=== PATIENT | female | born 1995 | race African-American/Black ===

== ENCOUNTER 2017-09-30 09:10 | Emergency (ER) | payer OTHER, SELFPAY ==
[2017-09-30] MEDS ORDERED: Sodium Chloride 0.9% 1,000 ML BAG ONE (09:21)
[2017-09-30] MEDS ORDERED: Ondansetron HCl/PF 4 MG/2 ML Vial ONE (09:37)
[2017-09-30] MEDS ORDERED: Diphenoxylate HCl/Atropine Tablet ONE (09:38)
[2017-09-30] MEDS ORDERED: Ketorolac Tromethamine 30 MG/ML VIAL ONE (09:38)
[2017-09-30] MEDS ORDERED: Ondansetron ODT 4 MG TAB ONE ×2 (09:40→12:50)
[2017-09-30 09:56] LABS: #Eosinphils 0.1 thou/uL (0.0-0.7); #Lymphocytes 2.3 thou/uL (1.20-3.40); #Monocytes 0.5 thou/uL (0.11-0.59); #Neutrophils 11.7 thou/uL (1.40-6.50); %Basophils 0.3 % (0.0-1.0); %Eosinophils 0.8 % (0.0-10.0); %Lymphocytes 15.8 % (21.0-51.0); %Monocytes 3.4 % (0.0-10.0); %Neutrophils 79.6 % (42.0-75.0); Hemoglobin 14.4 g/dL (12.0-16.0); Mean Corpuscular HGB CONC 34.6 g/dL (32.0-36.0); Mean Corpuscular Hemoglobin 31.4 pg (27.0-31.0); Mean Corpuscular Volume 90.9 fl (81.0-99.0); Mean Platelet Volume 7.7 fL (7.4-10.4); Platelet Count 292 thou/uL (130-400); RBC Distribution Width 10.7 % (11.5-14.5); Red Blood Cell (RBC) Count 4.59 mill/uL (4.20-5.40); White Blood Cell (WBC) Count 14.7 thou/uL (4.8-10.8)
[2017-09-30 10:05] LABS: BHCG - Serum Negative (NEGATIVE); Pregs Control Background? CLEAR/WHITE (CLR/WHITE); Pregs Control Bar Appear? YES (CONTROL BAR)
[2017-09-30 10:09] LABS: ALT (SGPT) 8 U/L (8-55); AST (SGOT) 11 U/L (5-34); Albumin 4.6 g/dL (3.5-5.0); Alkaline Phosphatase 50 U/L (40-150); Anion Gap 16 mmol/L (10-20); BUN (Urea Nitrogen) 9 mg/dL (7.0-18.7); Bilirubin, Total 0.4 mg/dL (0.2-1.2); Calc. Creatinine Clearance 0 mL/min (70-130); Calcium 10.1 mg/dL (7.8-10.44); Carbon Dioxide 20 mmol/L (22-29); Chloride 109 mmol/L (98-107); Estimated GFR-MDRD Greater than 90; Globulin 2.7 g/dL (2.4-3.5); Glucose 104 mg/dL (70-105); Lipase 12 U/L (8-78); Potassium 4.1 mmol/L (3.5-5.1); Protein, Total 7.3 g/dL (6.0-8.3); Sodium 141 mmol/L (136-145)
[2017-09-30] MEDS ORDERED: Morphine 10 MG/ML VIAL ONE (10:48)
[2017-09-30 12:14] LABS: Bilirubin Negative (Negative); Blood, Urine Negative (Negative); Glucose, Urine (Dipstick) Negative (Negative); Leukocyte Trace (Negative); Nitrite Negative (Negative); Protein, Urine (Dipstick) 30 mg/dL (Neg-Trace); Specific Gravity, Urine 1.025 (1.005-1.030); Urobilinogen 0.2 mg/dL (0.2-1.0)
[2017-09-30 12:16] LABS: Bacteria/HPF 1+ HPF (None Seen); Other Microscopic Description C&S SET UP; RBC/HPF 0-3 HPF (0-3); WBC/HPF 0-3 HPF (0-3)
== END 2017-09-30 13:05 | disposition home or self-care (01) ==
LOC: MADERS 09:10
DX: B34.9 Viral infection, unspecified (principal); F17.210 Nicotine dependence, cigarettes, uncomplicated
CPT/HCPCS: 36415; 80053; 81001; 82150; 83690; 84703; 85025; 87086; 96361; 96374; 96375; J1885; J2270; J2405; J7050; Q0162

== ENCOUNTER 2019-01-03 14:02 | Emergency (ER) | payer SELFPAY | END 2019-01-03 14:30 | disposition home or self-care (01) | LOC: MADERS 14:02 | DX: N89.8 Other specified noninflammatory disorders of vagina (principal); F17.210 Nicotine dependence, cigarettes, uncomplicated | CPT/HCPCS: 99281 ==

== ENCOUNTER 2020-02-27 09:57 | Emergency (ER) | payer MEDICAID, SELFPAY ==
[2020-02-27] MEDS ORDERED: Sucralfate 1 GM TAB ONE (10:49)
[2020-02-27] MEDS ORDERED: Mag-Al Plus 1200 MG/1200 MG/120 MG/30 ML UDCUP ONE (10:49)
[2020-02-27] MEDS ORDERED: Ondansetron ODT 4 MG TAB ONE (10:49)
[2020-02-27] MEDS ORDERED: Nitrofurantoin Monohyd/M-Cryst 100 MG CAP ONE (10:49)
[2020-02-27] MEDS ORDERED: Lidocaine Viscous Sol 2% 15 ml UD Cup ONE (10:49)
[2020-02-27 10:54] LABS: #Basophils 0.1 thou/uL (0.0-0.2); #Lymphocytes 2.2 thou/uL (1.20-3.40); #Monocytes 0.3 thou/uL (0.11-0.59); %Eosinophils 0.2 % (0.0-10.0); %Monocytes 3.1 % (0.0-10.0); %Neutrophils 72.8 % (42.0-75.0); Hemoglobin 12.9 g/dL (12.0-16.0); Mean Corpuscular HGB CONC 33.4 g/dL (32.0-36.0); Mean Corpuscular Hemoglobin 31.4 pg (27.0-31.0); Mean Platelet Volume 7.3 fL (7.4-10.4); Platelet Count 389 thou/uL (130-400); RBC Distribution Width 11.1 % (11.5-14.5); Red Blood Cell (RBC) Count 4.13 mill/uL (4.20-5.40); White Blood Cell (WBC) Count 9.6 thou/uL (4.8-10.8)
[2020-02-27 11:03] LABS: BHCG - Serum Negative (NEGATIVE); Pregs Control Background? CLEAR/WHITE (CLR/WHITE); Pregs Control Bar Appear? YES (CONTROL BAR)
[2020-02-27] MEDS ORDERED: Ketorolac Tromethamine 30 MG/ML VIAL ONE (11:11)
[2020-02-27 11:14] LABS: ALT (SGPT) 19 U/L (8-55); AST (SGOT) 16 U/L (5-34); Albumin 4.1 g/dL (3.5-5.0); Alkaline Phosphatase 44 U/L (40-110); Anion Gap 18 mmol/L (10-20); BUN (Urea Nitrogen) 6 mg/dL (7.0-18.7); Bilirubin, Total 0.5 mg/dL (0.2-1.2); Calc. Creatinine Clearance 0 mL/min (70-130); Calcium 9.2 mg/dL (7.8-10.44); Carbon Dioxide 23 mmol/L (22-29); Chloride 102 mmol/L (98-107); Estimated GFR-MDRD Greater than 90; Globulin 2.3 g/dL (2.4-3.5); Glucose 86 mg/dL (70-105); Lipase 16 U/L (8-78); Potassium 3.6 mmol/L (3.5-5.1); Protein, Total 6.4 g/dL (6.0-8.3); Sodium 139 mmol/L (136-145)
[2020-02-27] MEDS ORDERED: Morphine 4 MG/ML VIAL ONE (11:35)
== END 2020-02-27 12:37 | disposition home or self-care (01) ==
LOC: MADERS 09:57
DX: K21.9 Gastro-esophageal reflux disease without esophagitis (principal); K29.70 Gastritis, unspecified, without bleeding; F41.9 Anxiety disorder, unspecified; F31.9 Bipolar disorder, unspecified; F17.210 Nicotine dependence, cigarettes, uncomplicated
CPT/HCPCS: 36415; 80053; 83690; 84703; 85025; 96372; 99284; J1885; J2270; Q0162

== ENCOUNTER 2020-02-29 03:29 | Emergency (ER) | payer MEDICAID, SELFPAY ==
[2020-02-29] MEDS ORDERED: Lorazepam 2 MG/ML VIAL ONE ×2 (03:54→04:51)
[2020-02-29] MEDS ORDERED: Ondansetron ODT 4 MG TAB ONE (03:55)
[2020-02-29 04:26] LABS: Hemoglobin 13.7 g/dL (12.0-16.0); Mean Corpuscular HGB CONC 34.4 g/dL (32.0-36.0); Mean Corpuscular Hemoglobin 31.8 pg (27.0-31.0); Mean Corpuscular Volume 92.3 fL (78.0-98.0); Mean Platelet Volume 6.8 fL (7.4-10.4); Platelet Count 425 thou/uL (130-400); RBC Distribution Width 11.3 % (11.5-14.5); Red Blood Cell (RBC) Count 4.31 mill/uL (4.20-5.40); White Blood Cell (WBC) Count 13.5 thou/uL (4.8-10.8)
[2020-02-29 04:43] LABS: ALT (SGPT) 17 U/L (8-55); AST (SGOT) 15 U/L (5-34); Albumin 4.3 g/dL (3.5-5.0); Alkaline Phosphatase 45 U/L (40-110); Anion Gap 18 mmol/L (10-20); BUN (Urea Nitrogen) 6 mg/dL (7.0-18.7); Bilirubin, Total 0.3 mg/dL (0.2-1.2); Calc. Creatinine Clearance 0 mL/min (70-130); Calcium 9.4 mg/dL (7.8-10.44); Carbon Dioxide 25 mmol/L (22-29); Chloride 102 mmol/L (98-107); Estimated GFR-MDRD Greater than 90; Globulin 2.4 g/dL (2.4-3.5); Glucose 101 mg/dL (70-105); Lipase 16 U/L (8-78); Potassium 3.4 mmol/L (3.5-5.1); Protein, Total 6.7 g/dL (6.0-8.3); Sodium 142 mmol/L (136-145)
[2020-02-29 04:44] LABS: CK (CPK) 120 U/L (29-168); CRP (Inflammatory) Less than 0.50 mg/dL (= or < 0.5)
[2020-02-29 04:45] LABS: Band 2 % (5-11); Basophilic Stippling SLIGHT = 1-2 cells (100X) (None Seen); Eosinophils 1 % (0-10); Large Platelets SLIGHT; Lymphocytes 26 % (21-51); MDiff Complete? YES; Monocytes 2 % (0-10); Neutrophil 66 % (42-75); Platelet Morphology Comment Appears Increased; Polychromasia SLIGHT = 2-3 cells (100X) (0-2/hpf)
[2020-02-29 04:51] LABS: Bilirubin Negative (Negative); Blood, Urine Negative (Negative); Clarity Slightly Cloudy (Clear); Glucose, Urine (Dipstick) 250 mg/dL (Negative); Ketone, Urine Trace mg/dL (Negative); Leukocyte Moderate (Negative); Nitrite Negative (Negative); Pregnancy Test - Urine (BHCG) Negative (Negative); Pregu Control Background? CLEAR/WHITE (CLR/WHITE); Pregu Control Bar Appear? YES (CONTROL BAR); Protein, Urine (Dipstick) Negative (Neg-Trace); Specific Gravity 1.025 (1.002-1.036); Specific Gravity, Urine 1.025 (1.005-1.030); Urobilinogen 0.2 mg/dL (Less than 2)
[2020-02-29 04:56] LABS: Bacteria/HPF 2+ HPF (None Seen); RBC/HPF None Seen HPF (0-3)
[2020-02-29 04:57] LABS: Mucous/LPF 1+ LPF (<2+)
[2020-02-29 04:58] LABS: Amphetamine Not Detected (NotDetected); Barbiturates Screen Not Detected (NotDetected); Benzodiazepine Screen Not Detected (NotDetected); Cocaine Metabolite Screen Not Detected (NotDetected); Medtox Control Line Valid? VALID (VALID); Methadone Not Detected (NotDetected); Methamphetamine Not Detected (NotDetected); Opiate Screen Not Detected (NotDetected); Oxycodone Screen Not Detected (NotDetected); Phencyclidine (PCP) Not Detected (NotDetected); THC/Cannabinoid Screen Not Detected (NotDetected); Tricyclic Screen Not Detected (NotDetected)
[2020-02-29] MEDS ORDERED: Sodium Chloride 0.9% 100 ML ONE (05:43)
[2020-02-29] MEDS ORDERED: cefTRIAXone\\ROCEPHIN 1 GM VIAL ONE (05:43)
[2020-02-29] MEDS ORDERED: Dextrose 5 % And 0.9 % NaCl 1000 ml Bag ONE (07:14)
== END 2020-02-29 08:45 | disposition home or self-care (01) ==
LOC: MADERS 03:29
DX: N39.0 Urinary tract infection, site not specified (principal); R11.2 Nausea with vomiting, unspecified; F41.0 Panic disorder [episodic paroxysmal anxiety]; F17.210 Nicotine dependence, cigarettes, uncomplicated; Z79.899 Other long term (current) drug therapy
CPT/HCPCS: 80053; 80306; 81003; 81015; 81025; 82550; 83690; 84443; 85025; 86140; 96361; 96365; 96372; 96375; J0696; J2060; J3490; J7042; Q0162

== ENCOUNTER 2020-05-23 15:27 | Emergency (ER) | payer SELFPAY ==
[~2020-05-23 15:27] MED LIST: Iopamidol 370 76% 100 ML VIAL ONE
[2020-05-23 16:12] LABS: #Basophils 0.4 thou/uL (0.0-0.2); #Eosinphils 0.1 thou/uL (0.0-0.7); #Lymphocytes 4.2 thou/uL (1.20-3.40); #Monocytes 0.7 thou/uL (0.11-0.59); #Neutrophils 7.2 thou/uL (1.40-6.50); %Basophils 2.8 % (0.0-1.0); %Eosinophils 0.6 % (0.0-10.0); %Lymphocytes 33.7 % (21.0-51.0); %Monocytes 5.3 % (0.0-10.0); %Neutrophils 57.6 % (42.0-75.0); Hemoglobin 13.4 g/dL (12.0-16.0); Mean Corpuscular HGB CONC 34.8 g/dL (32.0-36.0); Mean Corpuscular Hemoglobin 33.3 pg (27.0-31.0); Mean Corpuscular Volume 95.6 fL (78.0-98.0); Mean Platelet Volume 6.6 fL (7.4-10.4); Platelet Count 437 thou/uL (130-400); RBC Distribution Width 10.8 % (11.5-14.5); Red Blood Cell (RBC) Count 4.01 mill/uL (4.20-5.40); White Blood Cell (WBC) Count 12.5 thou/uL (4.8-10.8)
[2020-05-23 16:21] LABS: Anion Gap 19 mmol/L (10-20); BUN (Urea Nitrogen) 7 mg/dL (7.0-18.7); Calc. Creatinine Clearance 0 mL/min (70-130); Calcium 9.3 mg/dL (7.8-10.44); Carbon Dioxide 32 mmol/L (22-29); Chloride 91 mmol/L (98-107); Glucose 95 mg/dL (70-105); Sodium 139 mmol/L (136-145)
[2020-05-23 16:29] LABS: Pregnancy Test - Urine (BHCG) Negative (Negative); Pregu Control Background? CLEAR/WHITE (CLR/WHITE); Pregu Control Bar Appear? YES (CONTROL BAR); Specific Gravity 1.015 (1.002-1.036)
[2020-05-23 16:30] LABS: Bilirubin Negative (Negative); Blood, Urine Negative (Negative); Clarity Clear (Clear); Glucose, Urine (Dipstick) Negative (Negative); Ketone, Urine Negative (Negative); Leukocyte Small (Negative); Nitrite Negative (Negative); Protein, Urine (Dipstick) Negative (Neg-Trace); Specific Gravity, Urine 1.015 (1.005-1.030)
[2020-05-23 16:32] LABS: Potassium 2.5 mmol/L (3.5-5.1)
[2020-05-23 16:35] LABS: Bacteria/HPF Rare-Few HPF (None Seen); RBC/HPF 0-3 HPF (0-3); Squamous Epithelial 0-3 HPF (0-3)
[2020-05-23] MEDS ORDERED: Ketorolac Tromethamine 30 MG/ML VIAL ONE (17:03)
[2020-05-23] MEDS ORDERED: NS 0.9% w/ 20 MEQ KCL 1,000 ML ONE (17:03)
[2020-05-23] MEDS ORDERED: Potassium Chloride 20 MEQ TAB ONE (17:03)
[2020-05-23] MEDS ORDERED: Lorazepam 2 MG/ML VIAL ONE (17:24)
--- NOTE | 2020-05-23 18:27 | CT ---
CT ABDOMEN AND PELVIS WITH IV CONTRAST 05/23/20 PROVIDED CLINICAL HISTORY: Abdominal pain. FINDINGS: The visualized lung bases are free of significant opacity. The liver, spleen, pancreas, kidneys and adrenal glands demonstrate an unremarkable CT appearance. There is no evidence for bowel obstruction. There is conspicuous colonic fecal retention that may ref lect constipation. There is no evidence for free intraperitoneal fluid or free intraperitoneal air. Evaluation for inflammatory at stranding is markedly limited given the paucity of intra-abdominal fat and lack of enteric contrast material. The appendix is not distinctly identified. The regional major vascular structures appear unremarkable. The osseous structures demonstrate no concerning lytic or blastic lesions. IMPRESSION: No definite evidence for an acute process with limitations as described. POS: GABRIELLE
[2020-05-23] MEDS ORDERED: Ondansetron PF 4 MG/2 ML Vial ONE (18:43)
== END 2020-05-23 20:00 | disposition home or self-care (01) ==
LOC: MADERS 15:27
DX: E87.6 Hypokalemia (principal); F41.9 Anxiety disorder, unspecified; R10.9 Unspecified abdominal pain; R10.817 Generalized abdominal tenderness; F17.210 Nicotine dependence, cigarettes, uncomplicated
CPT/HCPCS: 74177; 80048; 81003; 81015; 81025; 85025; 93005; 96365; 96366; 96375; J1885; J2060; J2405; J3480; Q9967

== ENCOUNTER 2020-07-02 08:58 | Observation (INO) | payer MEDICAID, SELFPAY ==
[2020-07-02] MEDS ORDERED: Pantoprazole 40 MG VIAL ONE (10:00)
[2020-07-02] MEDS ORDERED: Sodium Chloride 0.9% 1,000 ML ONE ×2 (10:00→11:06)
[2020-07-02] MEDS ORDERED: Ondansetron PF 4 MG/2 ML Vial ONE (10:00)
[2020-07-02 10:16] LABS: #Basophils 0.1 thou/uL (0.0-0.2); #Lymphocytes 2.8 thou/uL (1.20-3.40); #Monocytes 0.6 thou/uL (0.11-0.59); #Neutrophils 12.6 thou/uL (1.40-6.50); %Basophils 0.6 % (0.0-1.0); %Lymphocytes 17.2 % (21.0-51.0); %Monocytes 3.8 % (0.0-10.0); %Neutrophils 78.4 % (42.0-75.0); Hemoglobin 13.5 g/dL (12.0-16.0); Mean Corpuscular Hemoglobin 32.5 pg (27.0-31.0); Mean Corpuscular Volume 95.7 fL (78.0-98.0); Mean Platelet Volume 7.2 fL (7.4-10.4); Platelet Count 468 thou/uL (130-400); RBC Distribution Width 11.2 % (11.5-14.5); Red Blood Cell (RBC) Count 4.15 mill/uL (4.20-5.40); White Blood Cell (WBC) Count 16.1 thou/uL (4.8-10.8)
[2020-07-02 10:31] LABS: Acetaminophen Less than 6.0 mcg/mL (10.0-30.0); Alcohol Less than 10 mg/dL (Less than 10); CK (CPK) 1468 U/L (29-168); Salicylate Less than 8.0 mg/dL (15.0-30.0)
[2020-07-02 10:34] LABS: ALT (SGPT) 24 U/L (8-55); AST (SGOT) 51 U/L (5-34); Albumin 4.9 g/dL (3.5-5.0); Alkaline Phosphatase 44 U/L (40-110); Anion Gap 19 mmol/L (10-20); BUN (Urea Nitrogen) 30 mg/dL (7.0-18.7); Bilirubin, Total 0.5 mg/dL (0.2-1.2); Calc. Creatinine Clearance 0 mL/min (70-130); Calcium 9.7 mg/dL (7.8-10.44); Carbon Dioxide 28 mmol/L (22-29); Chloride 94 mmol/L (98-107); Globulin 2.6 g/dL (2.4-3.5); Glucose 112 mg/dL (70-105); Lipase 22 U/L (8-78); Potassium 3.1 mmol/L (3.5-5.1); Protein, Total 7.5 g/dL (6.0-8.3); Sodium 138 mmol/L (136-145)
[2020-07-02] MEDS ORDERED: Metoclopramide HCl 10 MG/2 ML VIAL ONE (10:39)
[2020-07-02] MEDS ORDERED: Lorazepam 2 MG/ML VIAL ONE (10:40)
[2020-07-02] MEDS ORDERED: Promethazine HCl 25 MG/ML VIAL ONE (11:06)
[2020-07-02 14:53] LABS: Pregnancy Test - Urine (BHCG) Negative (Negative); Pregu Control Background? CLEAR/WHITE (CLR/WHITE); Pregu Control Bar Appear? YES (CONTROL BAR); Specific Gravity 1.025 (1.002-1.036)
[2020-07-02 14:54] VITALS: BMI 16.5
[2020-07-02 14:54] LABS: Amphetamine Not Detected (NotDetected); Barbiturates Screen Not Detected (NotDetected); Benzodiazepine Screen Detected (NotDetected); Cocaine Metabolite Screen Not Detected (NotDetected); Medtox Control Line Valid? VALID (VALID); Methadone Not Detected (NotDetected); Methamphetamine Not Detected (NotDetected); Opiate Screen Detected (NotDetected); Oxycodone Screen Not Detected (NotDetected); Phencyclidine (PCP) Not Detected (NotDetected); THC/Cannabinoid Screen Detected (NotDetected); Tricyclic Screen Not Detected (NotDetected)
[2020-07-02 14:55] LABS: Bilirubin Negative (Negative); Blood, Urine Negative (Negative); Clarity Hazy (Clear); Glucose, Urine (Dipstick) Negative (Negative); Ketone, Urine Negative (Negative); Leukocyte Negative (Negative); Nitrite Negative (Negative); Protein, Urine (Dipstick) 100 mg/dL (Neg-Trace); Specific Gravity, Urine 1.025 (1.005-1.030); Urobilinogen 0.2 mg/dL (Less than 2)
[2020-07-02 14:56] LABS: Bacteria/HPF Rare-Few HPF (None Seen); Mucous/LPF 2+ LPF (<2+); RBC/HPF 0-3 HPF (0-3)
[2020-07-02] MEDS: Sodium Chloride 0.9% 1,000 ML IV SCH ×2 (15:00→18:43)
[2020-07-02] MEDS ORDERED: Ondansetron PF 4 MG/2 ML Vial IVP PRN (16:38)
[2020-07-02] MEDS: Acetaminophen 325 MG TAB PO PRN (17:19)
[2020-07-02] MEDS ORDERED: Promethazine 25 MG TAB PO PRN (17:20)
[2020-07-02] MEDS ORDERED: Scopolamine 1.5 mg/72 hour Patch TD SCH (18:00)
[2020-07-02] MEDS: Nicotine 7 MG PATCH TD SCH (18:28)
[2020-07-02] MEDS: Ziprasidone 20 MG CAP PO SCH (21:17)
[2020-07-02] MEDS: Gabapentin 100 MG CAP PO SCH (21:17)
[2020-07-02] MEDS: Melatonin 3 MG TAB PO PRN (21:59)
[2020-07-03] MEDS: Acetaminophen 325 MG TAB PO PRN ×2 (01:00→08:17)
[2020-07-03] MEDS ORDERED: Non-Formulary Item 1 EACH (Omeprazole [Omeprazole] 40 MG Capsule.Dr) PO SCH (09:00)
[2020-07-03] MEDS ORDERED: Enoxaparin Sodium 30 MG/0.3 ML SYRINGE SC SCH (09:00)
[2020-07-03] MEDS ORDERED: Potassium Bicarbonate/Cit Ac 20 MEQ TAB PO SCH (09:00)
[2020-07-03] MEDS: Gabapentin 100 MG CAP PO SCH ×3 (09:19→20:11)
[2020-07-03] MEDS: Ziprasidone 20 MG CAP PO SCH ×2 (09:20→20:12)
[2020-07-03] MEDS: Ondansetron ODT 4 MG TAB PO PRN (10:40)
[2020-07-03] MEDS: Multivit, Therapeutic 1 TAB PO SCH (12:25)
[2020-07-03] MEDS ORDERED: Potassium Chloride 20 MEQ TAB PO SCH (13:45)
[2020-07-03 13:55] LABS: Hemoglobin 11.9 g/dL (12.0-16.0); Mean Corpuscular Hemoglobin 32.5 pg (27.0-31.0); Mean Corpuscular Volume 95.6 fL (78.0-98.0); Red Blood Cell (RBC) Count 3.65 mill/uL (4.20-5.40); White Blood Cell (WBC) Count 9.5 thou/uL (4.8-10.8)
[2020-07-03 13:56] LABS: #Lymphocytes 2.6 thou/uL (1.20-3.40); #Monocytes 0.3 thou/uL (0.11-0.59); #Neutrophils 6.5 thou/uL (1.40-6.50); %Basophils 0.9 % (0.0-1.0); %Eosinophils 0.3 % (0.0-10.0); %Lymphocytes 26.9 % (21.0-51.0); %Monocytes 3.7 % (0.0-10.0); %Neutrophils 68.3 % (42.0-75.0); Mean Platelet Volume 6.9 fL (7.4-10.4); Platelet Count 373 thou/uL (130-400); RBC Distribution Width 11.2 % (11.5-14.5)
[2020-07-03 13:57] LABS: #Basophils 0.1 thou/uL (0.0-0.2)
[2020-07-03 14:01] LABS: Sodium 138 mmol/L (136-145)
[2020-07-03 14:02] LABS: Anion Gap 15 mmol/L (10-20); BUN (Urea Nitrogen) 17 mg/dL (7.0-18.7); Carbon Dioxide 22 mmol/L (22-29); Chloride 104 mmol/L (98-107); Potassium 2.6 mmol/L (3.5-5.1)
[2020-07-03 14:03] LABS: AST (SGOT) 51 U/L (5-34); Alkaline Phosphatase 32 U/L (40-110); Bilirubin, Total 0.5 mg/dL (0.2-1.2); CK (CPK) 1249 U/L (29-168); Calc. Creatinine Clearance 83 mL/min (70-130); Calcium 8.8 mg/dL (7.8-10.44); Globulin 1.8 g/dL (2.4-3.5); Glucose 99 mg/dL (70-105); Protein, Total 5.8 g/dL (6.0-8.3)
[2020-07-03 14:04] LABS: ALT (SGPT) 24 U/L (8-55)
[2020-07-03] MEDS ORDERED: FLU VACC QS2020-21(6MOS UP)/PF 60 MCG/0.5 ML SYRINGE IM ONE (15:15)
[2020-07-03] MEDS: Nicotine 7 MG PATCH TD SCH (17:45)
[2020-07-03] MEDS: Simethicone Chewable 80 MG TAB PO PRN (17:46)
[2020-07-03] MEDS: Lorazepam 1 MG TAB PO PRN (17:46)
[2020-07-03] MEDS: Melatonin 3 MG TAB PO PRN (20:12)
[2020-07-04] MEDS: Acetaminophen 325 MG TAB PO PRN (02:12)
[2020-07-04] MEDS: Ondansetron ODT 4 MG TAB PO PRN (02:13)
[2020-07-04 05:36] LABS: Anion Gap 10 mmol/L (10-20); BUN (Urea Nitrogen) 12 mg/dL (7.0-18.7); CK (CPK) 702 U/L (29-168); Calc. Creatinine Clearance 87 mL/min (70-130); Calcium 8.5 mg/dL (7.8-10.44); Carbon Dioxide 27 mmol/L (22-29); Chloride 104 mmol/L (98-107); Glucose 88 mg/dL (70-105); Sodium 138 mmol/L (136-145)
[2020-07-04] MEDS: Lorazepam 1 MG TAB PO PRN (06:24)
[2020-07-04 06:52] VITALS: TEMP 98.1
[2020-07-04] MEDS: Multivit, Therapeutic 1 TAB PO SCH (08:45)
[2020-07-04] MEDS: Gabapentin 100 MG CAP PO SCH (08:46)
[2020-07-04] MEDS: Ziprasidone 20 MG CAP PO SCH (08:46)
[2020-07-04] MEDS: Simethicone Chewable 80 MG TAB PO PRN (08:50)
[2020-07-04] MEDS ORDERED: Potassium Chloride 20 MEQ TAB PO SCH (09:00)
[2020-07-04 11:51] VITALS: BP 130/86
--- NOTE | 2020-07-04 21:27 | HP ---
PRIMARY CARE PHYSICIAN: Carolina Rivera, nurse practitioner, in [place]. CHIEF COMPLIANT: Intractable nausea and vomiting, rhabdomyolysis. BRIEF HISTORY AND PHYSICAL: The patient is a 25-year-old female. The patient was recently discharged from [facility] in [place] due to similar complaints on the 30 of June. The patient presented to the emergency room due to intractable vomiting, which has worsened since her discharge from the hospital 3 days ago. She stated she has not had any relief. She is unable to hold any food or fluids down. She developed severe muscle ache and intense pain all over entire body. She also states she has only had a very little urine output. The patient states that she has had vomiting for majority of her adult life and for the past 3 to 4 months, it has worsened. The patient had been admitted to the hospital multiple times per record since 2013 due to abdominal vomiting and the most recent one was in [facility], June 26 to June 30. During the admission, the patient was able to see museum educator, who did an EGD on her, which showed mild gastritis. At that point, GI recommended symptoms were strongly related to use of marijuana and she was advised to discontinue this. The patient unfortunately continued to use marijuana and upon presentation in the emergency room, she was noted to have a white count of 16.1, hemoglobin 13.5, hematocrit 39.7. CPK was noted to be 1468. BUN of 30 and creatinine of 0.98. Due to this, the patient was given 3 L of normal saline. In the emergency room, she was given promethazine IV x1, metoclopramide injection x1, Zofran IV, and Ativan injection. The patient was also given Protonix. She initially was agitated and anxious, but after being medicated, she was able to calm down a little bit. The patient was meant to be transferred to [facility] in [place] again, but due to inclement weather, the decision was made to admit the patient to [facility] for IV hydration under observation. Upon evaluation of the patient, she was very anxious. She had been to the bathroom to shower multiple times. The patient was complaining of generalized body aches. The patient admitted to continuation of marijuana. She denies any chest pain. She denies palpitation. She denies any shortness of breath. The patient was also witnessed to be self inducing vomiting by sticking a finger in her mouth. She admits to having a previous history of anorexia and the patient denied any hallucinations, delusions, or any suicidal ideations. PAST MEDICAL HISTORY: Anorexia, bipolar depression, marijuana use. PAST SURGICAL HISTORY: None. FAMILY HISTORY: The patient states mother does have some depression. MEDICATIONS: The patient is meant to be on Geodon, gabapentin, Protonix, but she states she has not been able to pickle solution maker any of her medications. SOCIAL HISTORY: The patient uses tobacco cigarette smoking every day. She reports marijuana use. She currently lives with her mother. She denies any alcohol use. ALLERGIES: NO KNOWN DRUG ALLERGIES. REVIEW OF SYSTEMS: GENERAL: The patient complains of generalized muscle aches and pain. HEENT: The patient denies any headaches, blurry vision. CARDIOVASCULAR: No chest pain, dyspnea on exertion, or paroxysmal nocturnal dyspnea. RESPIRATORY: No shortness of breath, pain with breathing, chronic cough, or wheezing. GASTROINTESTINAL: Positive for nausea, vomiting, abdominal pain, anorexia. GENITOURINARY: No dysuria, hematuria, frequency, or urgency. MUSCULOSKELETAL: Denies any joint pain or swelling, but complains of generalized muscle aches. SKIN: Denies any rashes. NEUROLOGICAL: No focal deficits. PSYCHIATRY: Denies any hallucination. Complains of depression and anxiety. Denies any suicidal ideation. CODE STATUS: The patient is a full code. PHYSICAL EXAMINATION: VITAL SIGNS: Temperature 98.3, pulse 77, respirations 20, O2 saturation 99% on room air, and blood pressure 104/61. GENERAL: The patient is alert, awake, oriented x3, very anxious, lying in bed naked and then doing yoga positions under the cover. NECK: Supple. No JVD. Trachea midline. ENT: Mucous membranes dry. EYES: Normal injection. Extraocular muscles intact. Conjunctivae normal. Sclerae are normal. RESPIRATORY: Clear to auscultation bilaterally. CARDIOVASCULAR: S1 and S2. Tachycardia. ABDOMEN: Positive bowel sounds. Positive generalized tenderness, but no guarding. EXTREMITIES: No edema or erythema. SKIN: Dry, normal in color. PSYCHIATRY: The patient is agitated, anxious, restless. NEUROLOGICAL: No focal deficits. LABORATORIES AND IMAGING: EKG, sinus tachycardia. WBC 16.1, hemoglobin 13.5, hematocrit 39.7, platelets 468. Sodium 138, potassium 3.1, chloride 94, bicarb 28, BUN 30, creatinine 0.98, glucose 112, AST 51. CK 1468. Urine, dark yellow, hazy, +2 mucus, hyaline cast. Toxicity, opioids positive, benzos positive, cannabinoids positive. ASSESSMENT: 1. Acute rhabdomyolysis. 2. Cyclical vomiting syndrome. 3. Marijuana abuse. 4. Bipolar disorder. 5. Hypokalemia. PLAN: The patient is a 25-year-old female, who has been admitted for observation to [facility]. The patient will be continued on normal saline IV 2 more bags to complete [address] the patient on Zofran ODT. We will encourage clear liquid diet and then advance to regular diet in the morning. We will monitor the patient closely for any suicidal ideation. We will place the patient back on her home medications, which include bipolar medications. We will place the patient on GI prophylaxis with Protonix 40 mg daily. We will replace potassium and monitor CPK and potassium with a WBC in the morning. Estimated length of stay is 1 to 2 days. Total time used to prepare this H and P and evaluate the patient on the 02 of July was greater than 45 minutes. Job ID: [id number]
--- NOTE | 2020-07-05 08:18 | DIS ---
DATE OF ADMISSION: 07/02/2020 DATE OF DISCHARGE: 07/04/2020 DISCHARGING PHYSICIAN: Serenity Osorio MD. DISCHARGE DIAGNOSES: Acute rhabdomyolysis, improving; hypokalemia, improving; bipolar disorder; anorexia; intractable nausea and vomiting, resolved; marijuana abuse. DISCHARGE MEDICATIONS: 1. Neurontin 100 mg t.i.d. 2. Pantoprazole 40 mg daily. 3. Potassium gluconate 99 mg daily. 4. Geodon 20 mg b.i.d. 5. Scopolamine patch 1.5 mg q.3 days. 6. Zofran ODT 4 mg q.6 hours p.r.n. DISCHARGE DISPOSITION: Back to home with grandfather. DISCHARGE ACTIVITIES: The patient to follow up with PCP in 2 to 3 days. The patient to follow up with [facility] sanitation worker in [place] in one day. The patient advised to abstain from illicit drug use. The patient was advised to be compliant with her medications. BRIEF HOSPITAL COURSE: The patient is a 25-year-old female, who was admitted to [facility] in [place] on the 02 of July for observation due to acute rhabdomyolysis, cyclical intractable nausea and vomiting. The patient was placed on supportive care with volume resuscitation and antiemetics. Unfortunately, the patient had to be redirected multiple times as she constantly needs to be in the shower. The patient was not very compliant with the care. Unfortunately, also at midnight on day of discharge, July 04 about 2 a.m., nurse found the patient speaking to suicide crisis center, saying she was suicidal and she had notified us of this, which was not true, but upon hearing this, the patient was placed on suicide watch with a sitter and we proceeded to consult [facility]. The patient was able to have a meeting with [facility] coordinator who stated the patient was not a criteria for inpatient psych hospital at the moment and the patient was able to give a verbal contract to not commit suicide. The patient also stated she was not going to go through with this, but she just needed better help with her mental health. [facility] sanitation worker, myself, nursing staff were able to help the patient coordinate with her mom, who was also willing to have a safety plan with the patient. During hospitalization, her nausea and vomiting were able to resolve. She was able to transition to regular diet on the 03 of July with no throwing up. She was able to tolerate fluids and food. The patient was notified that symptoms are most likely exacerbated with the continued use of marijuana, which is probably laced by other illicit drugs. The patient states she is aware of this and she is currently willing to take better care of herself. The patient's potassium on day of discharge improved to 3.0 and CPK went down from 1468 to 702. Her BUN went from 30 to 12 and the patient has progressively improved. On day of discharge, discharge vital signs; temperature 98.1, pulse 100, blood pressure 130/86, respirations 18, O2 saturation 96% on room air. The patient was discharged home in a stable condition with her grandfather, whom she will be staying with and coordinating her care with [facility], which the patient agreed, again she was not suicidal and she had no plan to commit suicide. This was confirmed by me. It was confirmed by Dr. Connolly who briefly also saw the patient, was confirmed by nurse, and was confirmed by [facility] coordinator, among the others. Estimated time used to complete and evaluate the patient and coordinate care with [facility] was greater than 45 minutes. Job ID: [id number]
== END 2020-07-04 14:30 | disposition home or self-care (01) ==
LOC: MADERS 08:58 → MADMS 13:48 → INTOOBSV 13:48
PROVIDERS: ADMIT Family Medicine; ATTEND Family Medicine
DX: M62.82 Rhabdomyolysis (principal); E87.6 Hypokalemia; F31.9 Bipolar disorder, unspecified; R11.15 Cyclical vomiting syndrome unrelated to migraine; F12.10 Cannabis abuse, uncomplicated; F17.210 Nicotine dependence, cigarettes, uncomplicated; F41.9 Anxiety disorder, unspecified; R63.0 Anorexia; Z68.1 Body mass index [BMI] 19.9 or less, adult; Z79.899 Other long term (current) drug therapy; Z91.14 Patient's other noncompliance with medication regimen
CPT/HCPCS: 36415; 80048; 80053; 80306; 80307; 81003; 81015; 81025; 82550; 83690; 85025; 96361; 96365; 96366; 96375; C9113; G0378; J2060; J2405; J2550; J2765; J7050; Q0162

== ENCOUNTER 2020-07-05 15:10 | Emergency (ER) | payer SELFPAY ==
[2020-07-05 17:32] LABS: Bilirubin Negative (Negative); Blood, Urine Negative (Negative); Clarity Clear (Clear); Glucose, Urine (Dipstick) Negative (Negative); Ketone, Urine Trace mg/dL (Negative); Leukocyte Small (Negative); Nitrite Negative (Negative); Protein, Urine (Dipstick) Trace mg/dL (Neg-Trace); pH, Urine 6.5 (5.0-9.0)
[2020-07-05 17:33] LABS: Pregnancy Test - Urine (BHCG) Negative (Negative); Pregu Control Background? CLEAR/WHITE (CLR/WHITE); Pregu Control Bar Appear? YES (CONTROL BAR); Specific Gravity 1.022 (1.002-1.036); Specific Gravity, Urine 1.022 (1.002-1.036)
[2020-07-05 17:41] LABS: Bacteria/HPF Rare-Few HPF (None Seen); RBC/HPF 0-3 HPF (0-3)
[2020-07-05] MEDS ORDERED: Sodium Chloride 0.9% 1,000 ML ONE ×2 (17:46→22:01)
[2020-07-05] MEDS ORDERED: Lorazepam 2 MG/ML VIAL ONE ×2 (17:46→22:01)
[2020-07-05] MEDS ORDERED: Pantoprazole 40 MG VIAL ONE (17:46)
[2020-07-05] MEDS ORDERED: Lidocaine Viscous Sol 2% 15 ml UD Cup ONE (17:46)
[2020-07-05] MEDS ORDERED: Mag-Al Plus 1200 MG/1200 MG/120 MG/30 ML UDCUP ONE (17:46)
[2020-07-05 17:57] LABS: #Basophils 0.2 thou/uL (0.0-0.2); #Lymphocytes 2.6 thou/uL (1.20-3.40); #Monocytes 0.5 thou/uL (0.11-0.59); #Neutrophils 11.2 thou/uL (1.40-6.50); %Basophils 1.1 % (0.0-1.0); %Eosinophils 0.3 % (0.0-10.0); %Lymphocytes 17.9 % (21.0-51.0); %Monocytes 3.4 % (0.0-10.0); %Neutrophils 77.4 % (42.0-75.0); Hemoglobin 12.3 g/dL (12.0-16.0); Mean Corpuscular HGB CONC 33.2 g/dL (32.0-36.0); Mean Corpuscular Hemoglobin 32.3 pg (27.0-31.0); Mean Corpuscular Volume 97.5 fL (78.0-98.0); Mean Platelet Volume 6.2 fL (7.4-10.4); Platelet Count 360 thou/uL (130-400); RBC Distribution Width 11.4 % (11.5-14.5); White Blood Cell (WBC) Count 14.4 thou/uL (4.8-10.8)
[2020-07-05 20:14] LABS: ALT (SGPT) 22 U/L (8-55); AST (SGOT) 28 U/L (5-34); Albumin 4.2 g/dL (3.5-5.0); Alkaline Phosphatase 37 U/L (40-110); Anion Gap 15 mmol/L (10-20); BUN (Urea Nitrogen) 14 mg/dL (7.0-18.7); Bilirubin, Total 0.2 mg/dL (0.2-1.2); Calc. Creatinine Clearance 0 mL/min (70-130); Calcium 9.3 mg/dL (7.8-10.44); Carbon Dioxide 27 mmol/L (22-29); Chloride 105 mmol/L (98-107); Globulin 1.8 g/dL (2.4-3.5); Glucose 113 mg/dL (70-105); Lipase 30 U/L (8-78); Magnesium 1.7 mg/dL (1.6-2.6); Potassium 3.5 mmol/L (3.5-5.1); Sodium 143 mmol/L (136-145)
[2020-07-05 20:15] LABS: Acetaminophen Less than 6.0 mcg/mL (10.0-30.0); Alcohol Less than 10 mg/dL (Less than 10); Salicylate Less than 8.0 mg/dL (15.0-30.0)
[2020-07-05 20:45] LABS: Amphetamine Not Detected (NotDetected); Barbiturates Screen Not Detected (NotDetected); Benzodiazepine Screen Detected (NotDetected); Cocaine Metabolite Screen Not Detected (NotDetected); Medtox Control Line Valid? VALID (VALID); Methadone Not Detected (NotDetected); Methamphetamine Not Detected (NotDetected); Opiate Screen Not Detected (NotDetected); Oxycodone Screen Not Detected (NotDetected); Phencyclidine (PCP) Not Detected (NotDetected); THC/Cannabinoid Screen Detected (NotDetected); Tricyclic Screen Not Detected (NotDetected)
[2020-07-06] MEDS ORDERED: Lorazepam 2 MG/ML VIAL ONE ×2 (04:16→11:39)
[2020-07-06] MEDS ORDERED: Ondansetron PF 4 MG/2 ML Vial ONE (08:45)
[2020-07-06] MEDS ORDERED: Nicotine 7 MG PATCH ONE ×2 (12:50→12:51)
[2020-07-06] MEDS ORDERED: Ibuprofen 600 MG TAB ONE (20:04)
[2020-07-06] MEDS ORDERED: hydrOXYzine 25 MG TAB ONE (20:04)
[2020-07-06] MEDS ORDERED: Gabapentin 100 MG CAP ONE (20:04)
== END 2020-07-06 20:43 | disposition left against medical advice (07) ==
LOC: MADERS 15:10
DX: F29 Unspecified psychosis not due to a substance or known physiological condition (principal); R11.2 Nausea with vomiting, unspecified; F12.10 Cannabis abuse, uncomplicated; K90.0 Celiac disease; F17.290 Nicotine dependence, other tobacco product, uncomplicated; Z79.899 Other long term (current) drug therapy
CPT/HCPCS: 80053; 80306; 80307; 81003; 81015; 81025; 82550; 83690; 83735; 85025; 93005; 96365; 96375; 96376; C9113; J2060; J7050

== ENCOUNTER 2020-08-17 14:33 | Emergency (ER) | payer OTHER, MEDICAID ==
[~2020-08-17 14:33] MED LIST changes: -Iopamidol 370 76% 100 ML VIAL ONE; +Sodium Chloride 0.9% 1,000 ML BAG ONE; +Sodium Chloride 0.9% 500 ML BAG ONE
[2020-08-17 15:36] LABS: Bilirubin Small (Negative); Blood, Urine Negative (Negative); Clarity Slightly Cloudy (Clear); Glucose, Urine (Dipstick) Negative (Negative); Ketone, Urine 15 mg/dL (Negative); Leukocyte Trace (Negative); Nitrite Negative (Negative); Protein, Urine (Dipstick) > or equal to 300 mg/dL (Neg-Trace); Urobilinogen 0.2 mg/dL (Less than 2)
[2020-08-17 15:37] LABS: Band 1 % (5-11); Giant Platelets SLIGHT; Hemoglobin 17.9 g/dL (12.0-16.0); Large Platelets SLIGHT; Lymphocytes 15 % (21-51); MDiff Complete? YES; Mean Corpuscular HGB CONC 33.1 g/dL (32.0-36.0); Mean Corpuscular Hemoglobin 32.3 pg (27.0-31.0); Mean Corpuscular Volume 97.7 fL (78.0-98.0); Mean Platelet Volume 7.8 fL (7.4-10.4); Monocytes 5 % (0-10); Neutrophil 79 % (42-75); Platelet Count 764 thou/uL (130-400); Platelet Morphology Comment Appears Adequate; RBC Distribution Width 11.3 % (11.5-14.5); RBC Morphology Normal; Red Blood Cell (RBC) Count 5.56 mill/uL (4.20-5.40); White Blood Cell (WBC) Count 27.5 thou/uL (4.8-10.8)
[2020-08-17 15:38] LABS: Pregnancy Test - Urine (BHCG) Negative (Negative); Pregu Control Background? CLEAR/WHITE (CLR/WHITE); Pregu Control Bar Appear? YES (CONTROL BAR); Specific Gravity 1.022 (1.002-1.036)
[2020-08-17 15:39] LABS: Specific Gravity, Urine 1.022 (1.002-1.036)
[2020-08-17 15:40] LABS: ALT (SGPT) 15 U/L (8-55); AST (SGOT) 14 U/L (5-34); Albumin 6.1 g/dL (3.5-5.0); Alkaline Phosphatase 81 U/L (40-110); Anion Gap 35 mmol/L (10-20); BUN (Urea Nitrogen) 53 mg/dL (7.0-18.7); Bilirubin, Total 0.4 mg/dL (0.2-1.2); CK (CPK) 231 U/L (29-168); Calc. Creatinine Clearance 0 mL/min (70-130); Calcium 11.1 mg/dL (7.8-10.44); Carbon Dioxide 12 mmol/L (22-29); Chloride 87 mmol/L (98-107); Globulin 4.3 g/dL (2.4-3.5); Glucose 125 mg/dL (70-105); Potassium 3.8 mmol/L (3.5-5.1); Protein, Total 10.4 g/dL (6.0-8.3); Sodium 130 mmol/L (136-145)
[2020-08-17] MEDS ORDERED: Morphine 2 MG/ML VIAL ONE ×2 (15:55→16:33)
[2020-08-17 15:56] LABS: Bacteria/HPF 2+ HPF (None Seen); RBC/HPF 0-3 HPF (0-3)
[2020-08-17 15:57] LABS: Amphetamine Not Detected (NotDetected); Barbiturates Screen Not Detected (NotDetected); Benzodiazepine Screen Not Detected (NotDetected); Calcium Oxalate Crystals 1+ HPF (None Seen); Cocaine Metabolite Screen Not Detected (NotDetected); Methadone Not Detected (NotDetected); Methamphetamine Not Detected (NotDetected); Opiate Screen Detected (NotDetected); Oxycodone Screen Not Detected (NotDetected); Phencyclidine (PCP) Not Detected (NotDetected); THC/Cannabinoid Screen Not Detected (NotDetected); Tricyclic Screen Not Detected (NotDetected)
[2020-08-17 15:58] LABS: Medtox Control Line Valid? VALID (VALID)
[2020-08-17 16:11] LABS: Acetaminophen Less than 6.0 mcg/mL (10.0-30.0); Alcohol Less than 10 mg/dL (Less than 10); Salicylate Less than 8.0 mg/dL (15.0-30.0)
[2020-08-17 17:52] LABS: SARS-CoV-2 NAA Rapid Test Not Detected (NotDetected)
== END 2020-08-17 17:16 | disposition short-term general hospital (02) ==
LOC: MADERS 14:33
DX: N17.9 Acute kidney failure, unspecified (principal); Z20.822 Contact with and (suspected) exposure to COVID-19; E87.2 Acidosis; E83.52 Hypercalcemia; E87.1 Hypo-osmolality and hyponatremia; K90.0 Celiac disease; F17.290 Nicotine dependence, other tobacco product, uncomplicated
CPT/HCPCS: 0240U; 71045; 74176; 80053; 80306; 80307; 81003; 81015; 81025; 82550; 83605; 83735; 85025; 87040; 87086; 96374; 96376; J2270; J7030; J7050

== ENCOUNTER 2023-11-30 02:40 | Emergency (ER) | payer SELFPAY ==
[2023-11-30] MEDS ORDERED: Haloperidol Lactate 5 MG/ML VIAL ONE (02:55)
[2023-11-30] MEDS ORDERED: Sodium Chloride 0.9% 1,000 ML ONE ×2 (03:16→04:15)
[2023-11-30] MEDS ORDERED: diphenhydrAMINE 50 MG/ML VIAL ONE (03:16)
[2023-11-30 03:47] LABS: #Basophils 0.1 thou/uL (0.0-0.2); #Lymphocytes 2.2 thou/uL (1.20-3.40); #Monocytes 0.5 thou/uL (0.11-0.59); #Neutrophils 12.8 thou/uL (1.40-6.50); %Basophils 0.8 % (0.0-1.0); %Eosinophils 0.2 % (0.0-10.0); %Lymphocytes 14.3 % (21.0-51.0); %Monocytes 2.9 % (0.0-10.0); %Neutrophils 81.9 % (42.0-75.0); Hematocrit 42.5 % (36.0-47.0); Hemoglobin 13.2 g/dL (12.0-16.0); Mean Corpuscular HGB CONC 31.2 g/dL (32.0-36.0); Mean Corpuscular Hemoglobin 29.6 pg (27.0-31.0); Mean Platelet Volume 7.4 fL (7.4-10.4); Platelet Count 267 10x3/uL (130-400); RBC Distribution Width 13.4 % (11.5-14.5); Red Blood Cell (RBC) Count 4.47 mill/uL (4.20-5.40); White Blood Cell (WBC) Count 15.7 10x3/uL (4.8-10.8)
[2023-11-30 03:58] LABS: PTT 25.5 sec (22.9-36.1); Prothrombin Time 12.9 sec (12.0-14.7)
[2023-11-30 03:59] LABS: BHCG - Serum Negative (NEGATIVE); Pregs Control Background? CLEAR/WHITE (CLR/WHITE); Pregs Control Bar Appear? YES (CONTROL BAR)
[2023-11-30 04:07] LABS: ALT (SGPT) 33 U/L (8-55); AST (SGOT) 37 U/L (5-34); Albumin 4.8 g/dL (3.5-5.0); Alkaline Phosphatase 39 U/L (40-110); Anion Gap 18 mmol/L (10-20); BUN (Urea Nitrogen) 11 mg/dL (7.0-18.7); Bilirubin, Total 0.3 mg/dL (0.2-1.2); CK (CPK) 917 U/L (29-168); Calc. Creatinine Clearance 0 mL/min (70-130); Calcium 10.1 mg/dL (7.8-10.44); Carbon Dioxide 24 mmol/L (22-29); Chloride 105 mmol/L (98-107); Estimated GFR 109; Globulin 2.4 g/dL (2.4-3.5); Glucose 108 mg/dL (70-105); Potassium 3.8 mmol/L (3.5-5.1); Protein, Total 7.2 g/dL (6.0-8.3); Sodium 143 mmol/L (136-145)
[2023-11-30 04:11] LABS: Troponin I Less than 0.010 ng/mL (< 0.028)
[2023-11-30] MEDS ORDERED: cefTRIAXone (ROCEPHIN) 1 GM VIAL ONE (04:15)
[2023-11-30] MEDS ORDERED: Ondansetron PF 4 MG/2 ML Vial ONE (04:15)
[2023-11-30 05:03] LABS: Bilirubin Negative (Negative); Blood, Urine Negative (Negative); Clarity Cloudy (Clear); Glucose, Urine (Dipstick) Negative (Negative); Ketone, Urine Negative (Negative); Leukocyte Negative (Negative); Nitrite Negative (Negative); Protein, Urine (Dipstick) 30 mg/dL (Neg-Trace); Specific Gravity, Urine 1.025 (1.005-1.030); Urobilinogen 0.2 mg/dL (Less than 2); pH, Urine 7.5 (5.0-9.0)
[2023-11-30] MEDS ORDERED: Lidocaine Viscous Sol 2% 15 ml UD Cup ONE (05:04)
[2023-11-30] MEDS ORDERED: Ketorolac Tromethamine 30 MG (1 mL) VIAL ONE (05:04)
[2023-11-30] MEDS ORDERED: Milk Of Magnesia 30 ML UDCUP ONE (05:04)
[2023-11-30 05:10] LABS: CAUTI Indications for Culture Fever or rigors; RBC/HPF None Seen HPF (0-3)
[2023-11-30 05:11] LABS: Bacteria/HPF Rare-Few HPF (None Seen); Calcium Oxalate Crystals Rare HPF (None Seen); Squamous Epithelial 0-3 HPF (0-3)
[2023-11-30 05:12] LABS: Trichomonas/HPF Rare HPF (None Seen)
[2023-11-30 05:13] LABS: Urine Culture Reflex No No
== END 2023-11-30 05:23 | disposition home or self-care (01) ==
LOC: MADERS 02:40
DX: E86.0 Dehydration (principal); R11.15 Cyclical vomiting syndrome unrelated to migraine; M62.82 Rhabdomyolysis; F17.210 Nicotine dependence, cigarettes, uncomplicated; R11.2 Nausea with vomiting, unspecified
CPT/HCPCS: 80053; 81001; 82550; 83605; 84443; 84484; 84703; 85025; 85610; 85730; 93005; 96361; 96372; 96374; 96375; J0696; J1200; J1630; J1885; J2405; J7050

== ENCOUNTER 2024-05-27 19:48 | Emergency (ER) | payer OTHER ==
[2024-05-27] MEDS ORDERED: Ipratropium/Albuterol 3 ML NEB ONE (20:28)
[2024-05-27] MEDS ORDERED: Acetaminophen 500 MG TAB ONE (20:28)
[2024-05-27] MEDS ORDERED: Ketorolac Tromethamine 60 MG/2 ML VIAL ONE (20:28)
[2024-05-27] MEDS ORDERED: Azithromycin 250 MG TAB ONE (21:02)
[2024-05-27 21:22] LABS: Bilirubin Small (Negative); Blood, Urine Negative (Negative); Glucose, Urine (Dipstick) Negative (Negative); Ketone, Urine Trace mg/dL (Negative); Leukocyte Negative (Negative); Nitrite Negative (Negative); Protein, Urine (Dipstick) 100 mg/dL (Neg-Trace); pH, Urine 6.5 (5.0-9.0)
[2024-05-27 21:31] LABS: Amphetamine Detected (NotDetected); Barbiturates Screen Not Detected (NotDetected); Benzodiazepine Screen Detected (NotDetected); CAUTI Indications for Culture Fever or rigors; Clarity Turbid (Clear); Cocaine Metabolite Screen Not Detected (NotDetected); Methadone Not Detected (NotDetected); Methamphetamine Detected (NotDetected); Mucous/LPF 3+ LPF (<2+); Opiate Screen Not Detected (NotDetected); Oxycodone Screen Detected (NotDetected); Phencyclidine (PCP) Not Detected (NotDetected); RBC/HPF None Seen HPF (0-3); THC/Cannabinoid Screen Detected (NotDetected); Tricyclic Screen Not Detected (NotDetected); WBC/HPF 0-3 HPF (0-3)
[2024-05-27 21:39] LABS: Pregnancy Test - Urine (BHCG) Indeterminate (Negative); Pregu Control Background? CLEAR/WHITE (CLR/WHITE); Pregu Control Bar Appear? YES (CONTROL BAR); Urine Culture Reflex No No
== END 2024-05-27 22:24 | disposition home or self-care (01) ==
LOC: MADERS 19:48
DX: J18.9 Pneumonia, unspecified organism (principal); F15.10 Other stimulant abuse, uncomplicated; F11.10 Opioid abuse, uncomplicated; I10 Essential (primary) hypertension; F17.210 Nicotine dependence, cigarettes, uncomplicated; F17.290 Nicotine dependence, other tobacco product, uncomplicated
CPT/HCPCS: 71046; 80306; 81001; 81025; 87070; 87205; 93005; 94640; 96372; J1885; J7620